=== PATIENT | female | born 1960 | race Caucasian/White ===

== ENCOUNTER 2019-07-14 10:38 | Emergency (ER) | payer MEDICARE, MEDICAID ==
[~2019-07-14] VITALS: Ht 160 cm; Wt 90.0 kg
[~2019-07-14 10:38] MED LIST: ALBU8.5H4 IH; BUPR150T27 PO; CALC-793 PO; COL100C PO; DEXL60CA3 PO; DHEA25 PO; DIAZ10TA15 PO; ESTR1TAB28 PO; FLO0.4C PO; FLUO20CA43 PO; GABA-330 PO; IPRA12.94 IH; LEVO112T5 PO; LURA40TA PO; MOME17SP INH; MULT-785 PO; OMEG1CAP46 PO; ONDA8TAB9 PO; OXYC-145 PO; POLY17PO10 PO; PRAZ2CAP2 PO; PRED50TA PO; QUET400T12 PO; SENN-8 PO; SUMA50TA17 PO; TOP100T PO; ZOF4T PO
--- NOTE | 2019-07-14 11:29 | NUR ---
pt out to xray via fidel with compressor technician
--- NOTE | 2019-07-14 11:37 | NUR ---
pt returns from xray
[2019-07-14] MEDS ORDERED: LEVO750T21 PO (12:12)
[2019-07-14] MEDS ORDERED: FLUC100T PO (12:37)
[2019-07-14 12:43] VITALS: BP 100/57
== END 2019-07-14 12:44 | disposition home or self-care (01) ==
LOC: ER 10:39
DX: J01.20 Acute ethmoidal sinusitis, unspecified (principal); R21 Rash and other nonspecific skin eruption; I11.0 Hypertensive heart disease with heart failure; I50.9 Heart failure, unspecified; J45.909 Unspecified asthma, uncomplicated; K21.9 Gastro-esophageal reflux disease without esophagitis; G89.29 Other chronic pain; F31.9 Bipolar disorder, unspecified; Z86.73 Personal history of transient ischemic attack (TIA), and cerebral infarction without residual deficits; Z98.890 Other specified postprocedural states; Z88.0 Allergy status to penicillin; Z88.1 Allergy status to other antibiotic agents; Z91.041 Radiographic dye allergy status; Z88.8 Allergy status to other drugs, medicaments and biological substances; Z79.899 Other long term (current) drug therapy
CPT/HCPCS: 71046; 99283

== ENCOUNTER 2019-10-23 16:58 | Emergency (ER) | payer MEDICARE, MEDICAID ==
[~2019-10-23] VITALS: Ht 162.6 cm; Wt 86.0 kg
[~2019-10-23 16:58] MED LIST changes: -ALBU8.5H4 IH; +ALBU8.5H8 INH; -BUPR150T27 PO; +BUPR300T86 PO; -CALC-793 PO; +CELE200C PO; -COL100C PO; -DHEA25 PO; -DIAZ10TA15 PO; +DIAZ10TA4 PO; +DIGO125T97 PO; +ESTR1TAB19 PO; -ESTR1TAB28 PO; -FLO0.4C PO; +FLUO-167 PO; -FLUO20CA43 PO; +FURO-149 PO; -IPRA12.94 IH; +ISOS30TA6 PO; -LURA40TA PO; +LURA60TA2 PO; +MELA10TA3 PO; -MOME17SP INH; +MONT10TA21 PO; -MULT-785 PO; +MULT1TAB74 PO; +NITR0.4T48 SL; +OMEG-107 PO; -OMEG1CAP46 PO; -ONDA8TAB9 PO; -OXYC-145 PO; -POLY17PO10 PO; -PRED50TA PO; +QUET400T PO; -QUET400T12 PO; -SENN-8 PO; +SPIR50TA5 PO; +SUMA50TA PO; -SUMA50TA17 PO; -ZOF4T PO
[2019-10-23 18:32] LABS: BASOPHILS % (AUTO) 0.6 % (0-1); EOSINOPHILS # (AUTO) 0.3 X10'3 (0-0.9); HEMATOCRIT 30.5 % (35.0-45.0); HEMOGLOBIN 10.4 g/dl (12.0-16.0); LYMPHOCYTES # (AUTO) 1.4 X10'3 (1.1-4.8); LYMPHOCYTES % (AUTO) 18.8 % (21-51); MEAN CORPUSCULAR HGB CONC 34.1 g/dL (33.0-36.5); MEAN CORPUSCULAR VOLUME 96.7 FL (78-98); MEAN PLATELET VOLUME 9.1 FL (7.4-10.4); MONOCYTES # (AUTO) 0.5 X10'3 (0-0.9); MONOCYTES % (AUTO) 6.7 % (2-12); NEUTROPHILS # (AUTO) 5.2 X10'3 (1.8-7.7); NEUTROPHILS % (AUTO) 69.9 % (42-75); PLATELET COUNT 188 X10'3 (140-440); RED BLOOD COUNT 3.16 X10'6 (4.20-5.60); WHITE BLOOD COUNT 7.4 X10'3 (4.5-11.0)
[2019-10-23 18:42] LABS: ALANINE AMINOTRANSFERASE 25 U/L (12-78); ALBUMIN 3.2 G/DL (3.4-5.0); ALKALINE PHOSPHATASE 133 IU/L (46-116); ANION GAP 5 (8-16); ASPARTATE AMINO TRANSFERASE 20 U/L (10-37); BILIRUBIN,TOTAL 0.1 MG/DL (0.1-1.0); BLOOD UREA NITROGEN 33 MG/DL (7-18); BUN/CREATININE RATIO 17.1 (6.6-38.0); CALCIUM 8.8 MG/DL (8.5-10.1); CHLORIDE 108 MMOL/L (99-107); CREATININE 1.93 MG/DL (0.40-0.90); GLUCOSE 88 MG/DL (70-104); POTASSIUM 3.9 MMOL/L (3.5-5.1); SODIUM 145 MMOL/L (135-145); TOTAL CARBON DIOXIDE 31.8 MMOL/L (24-32); TOTAL PROTEIN 6.5 G/DL (6.4-8.2); eGFR 27 ML/MIN
[2019-10-23 21:41] VITALS: BP 124/72
== END 2019-10-23 21:44 | disposition home or self-care (01) ==
LOC: ER 16:58
DX: R07.89 Other chest pain (principal); I11.0 Hypertensive heart disease with heart failure; I50.9 Heart failure, unspecified; J45.909 Unspecified asthma, uncomplicated; K21.9 Gastro-esophageal reflux disease without esophagitis; G89.29 Other chronic pain; Z86.73 Personal history of transient ischemic attack (TIA), and cerebral infarction without residual deficits; Z87.01 Personal history of pneumonia (recurrent); Z90.49 Acquired absence of other specified parts of digestive tract; Z98.890 Other specified postprocedural states; Z88.0 Allergy status to penicillin; Z88.1 Allergy status to other antibiotic agents; Z79.899 Other long term (current) drug therapy
CPT/HCPCS: 36415; 71045; 80053; 84484; 85025; 93005; 99285

== ENCOUNTER 2020-06-17 16:25 | Emergency (ER) | payer MEDICARE, MEDICAID ==
[~2020-06-17] VITALS: Ht 162.6 cm; Wt 81.8 kg
[~2020-06-17 16:25] MED LIST changes: +MULT-620 PO; -MULT1TAB74 PO
[2020-06-17] MEDS ORDERED: ondansetron/PF 4mg/2ml inj IV ONE (16:40)
[2020-06-17] MEDS ORDERED: normal saline 1000ML IV soln IVB ONE ×2 (16:40→17:30)
[2020-06-17 17:06] LABS: BASOPHILS % (AUTO) 0.6 % (0-1); EOSINOPHILS # (AUTO) 0.1 X10'3 (0-0.9); EOSINOPHILS % (AUTO) 0.8 % (0-6); HEMATOCRIT 39.3 % (35.0-45.0); HEMOGLOBIN 13.1 g/dl (12.0-16.0); LYMPHOCYTES # (AUTO) 1.2 X10'3 (1.1-4.8); LYMPHOCYTES % (AUTO) 16.4 % (21-51); MEAN CORPUSCULAR HEMOGLOBIN 32.3 PG (27.0-31.0); MEAN CORPUSCULAR HGB CONC 33.4 g/dL (33.0-36.5); MEAN CORPUSCULAR VOLUME 96.5 FL (78-98); MEAN PLATELET VOLUME 8.8 FL (7.4-10.4); MONOCYTES # (AUTO) 0.5 X10'3 (0-0.9); MONOCYTES % (AUTO) 6.6 % (2-12); NEUTROPHILS # (AUTO) 5.7 X10'3 (1.8-7.7); NEUTROPHILS % (AUTO) 75.6 % (42-75); PLATELET COUNT 221 X10'3 (140-440); RED BLOOD COUNT 4.07 X10'6 (4.20-5.60); RED CELL DISTRIBUTION WIDTH 13.1 % (11.5-14.5); WHITE BLOOD COUNT 7.5 X10'3 (4.5-11.0)
[2020-06-17 17:11] LABS: ALANINE AMINOTRANSFERASE 20 U/L (12-78); ALBUMIN 3.3 G/DL (3.4-5.0); ALBUMIN/GLOBULIN RATIO 0.8 (1.1-1.5); ALKALINE PHOSPHATASE 122 IU/L (46-116); ANION GAP 5 (8-16); ASPARTATE AMINO TRANSFERASE 22 U/L (10-37); BILIRUBIN,TOTAL 0.2 MG/DL (0.1-1.0); BLOOD UREA NITROGEN 20 MG/DL (7-18); BUN/CREATININE RATIO 13.3 (6.6-38.0); CALCIUM 9.7 MG/DL (8.5-10.1); CHLORIDE 111 MMOL/L (99-107); GLUCOSE 92 MG/DL (70-104); LIPASE 163 U/L (73-393); POTASSIUM 3.7 MMOL/L (3.5-5.1); SODIUM 142 MMOL/L (135-145); TOTAL CARBON DIOXIDE 26.1 MMOL/L (24-32); TOTAL PROTEIN 7.3 G/DL (6.4-8.2); eGFR 35 ML/MIN
--- NOTE | 2020-06-17 20:37 | NUR ---
assisting RN with pt care, in and out cath done with sterile technique, no complications, sample sent to lab
[2020-06-17 21:02] LABS: CLARITY,URINE SLIGHTLY CLOUDY (Clear); COLOR,URINE YELLOW (Yellow); GLUCOSE, URINE NEGATIVE (Neg); KETONES,URINE TRACE mg/dl (Neg); LEUKOCYTE ESTERASE ,URINE NEGATIVE (Neg); NITRITES, URINE NEGATIVE (Neg); OCCULT BLOOD,URINE SMALL (Neg); PROTEIN,URINE NEGATIVE (Neg); UROBILINOGEN,URINE 0.2 E.U/dL (0.2-1.0)
[2020-06-17 21:08] LABS: UA COLLECTION TYPE FOLEY CATH
[2020-06-17 21:09] LABS: AMORPHOUS PHOSPHATES 2+; BACTERIA,URINE FEW /HPF (Neg); RBC,URINE 0-2 /HPF (0-2); SQUAMOUS EPITHELIAL CELL,UR MODERATE /LPF (FEW)
--- NOTE | 2020-06-17 21:10 | NUR ---
Pt with stable vs. Denies any pain at this time. Awaiting ua result from straight cath. Reporting some heartburn.
[2020-06-17] MEDS ORDERED: ONDA4TAB12 PO (21:18)
[2020-06-17] MEDS ORDERED: NITR100C6 PO (21:18)
--- NOTE | 2020-06-17 21:18 | NUR ---
UA resulted. Pt requesting dexalant for heartburn. Dr. Alvarez gave verbal for maalox. Pt agreeable to this. reprots he anticipated DC this Pt after reviewing her UA results.
[2020-06-17] MEDS ORDERED: mag hydrox/Alum hydrox/simeth 30ml oral suspension PO ONE (21:20)
[2020-06-17 21:39] VITALS: BP 144/84
== END 2020-06-17 21:42 | disposition home or self-care (01) ==
LOC: ER 16:25
DX: N39.0 Urinary tract infection, site not specified (principal); R10.31 Right lower quadrant pain; R11.2 Nausea with vomiting, unspecified; I50.9 Heart failure, unspecified; I11.0 Hypertensive heart disease with heart failure; J45.909 Unspecified asthma, uncomplicated; K21.9 Gastro-esophageal reflux disease without esophagitis; G89.29 Other chronic pain; F31.9 Bipolar disorder, unspecified; Z86.73 Personal history of transient ischemic attack (TIA), and cerebral infarction without residual deficits; Z90.49 Acquired absence of other specified parts of digestive tract; Z98.890 Other specified postprocedural states; Z88.0 Allergy status to penicillin; Z79.2 Long term (current) use of antibiotics; Z79.899 Other long term (current) drug therapy
CPT/HCPCS: 36415; 80053; 81001; 83690; 85025; 87088; 96361; 96374; 99283; J2405; J7030